=== PATIENT | female | born 1970 | race American Indian/Alaskan Native ===

== ENCOUNTER 2021-02-26 09:48 | Outpatient (CLI) | payer OTHER ==
--- NOTE | 2021-02-26 11:02 | XRay Report ---
LUMBAR SPINE 3 VIEWS INDICATION: BACK PAIN COMPARISON: None. FINDINGS: There is no fracture, subluxation, or other acute radiographic abnormality of the lumbar spine. Signer Name: Jeff Guy MD Signed: 02/26/2021 10:57 AM Workstation Name: [id number]
== END 2021-02-26 09:49 | disposition home or self-care (01) ==
LOC: XRAY 09:48
PROVIDERS: ATTEND Internal Medicine
DX: Z02.71 Encounter for disability determination (principal)
CPT/HCPCS: 72100